=== PATIENT | female | born 1995 | race Two or more races ===

== ENCOUNTER 2020-01-04 14:05 | Observation (INO) | payer MEDICAID ==
[2020-01-04] MEDS ORDERED: PREN-96 PO (15:05)
== END 2020-01-04 23:45 | disposition home or self-care (01) | DRG 566 ==
LOC: LDRP 14:05
PROVIDERS: ADMIT Specialist; ATTEND Specialist
DX: O42.92 Full-term premature rupture of membranes, unspecified as to length of time between rupture and onset of labor (principal); Z3A.38 38 weeks gestation of pregnancy
CPT/HCPCS: 59025; 76815; 81002; G0378

== ENCOUNTER 2020-01-19 10:55 | Observation (INO) | payer MEDICAID ==
[~2020-01-19 10:55] MED LIST: PREN-96 PO
[2020-01-19] MEDS ORDERED: FERR-7 PO (14:14)
== END 2020-01-19 13:00 | disposition home or self-care (01) | DRG 566 ==
LOC: LDRP 10:55
PROVIDERS: ADMIT Obstetrics & Gynecology; ATTEND Obstetrics & Gynecology
DX: O48.0 Post-term pregnancy (principal); Z3A.40 40 weeks gestation of pregnancy
CPT/HCPCS: 59025; 76818; 81002; G0378